=== PATIENT | female | born 1995 ===

== ENCOUNTER 2018-11-03 17:17 | Observation (INO) | payer BC | END 2018-11-03 19:29 | disposition home or self-care (01) | LOC: MW.OBCHECK 17:17 → MW.OB 17:19 → MW.OBCHECK 17:55 | PROVIDERS: ADMIT Obstetrics & Gynecology; ATTEND Obstetrics & Gynecology | DX: O47.1 False labor at or after 37 completed weeks of gestation (principal); Z3A.40 40 weeks gestation of pregnancy; Z88.1 Allergy status to other antibiotic agents | CPT/HCPCS: 59025; 81003; G0378 ==

== ENCOUNTER 2018-11-03 23:28 | Inpatient (IN) | payer BC ==
[2018-11-04] MEDS ORDERED: Sodium Chloride 0.9% 10 ML SDV IV PRN ×2 (02:41→08:07)
[2018-11-04] MEDS: Butorphanol 1 MG/ML SDV IVPUSH PRN ×3 (03:03→08:31)
[2018-11-04] MEDS: Lactated Ringers 1,000 ML IV SCH ×4 (03:07→18:29)
[2018-11-04] MEDS ORDERED: Carboprost Tromethamine 250 MCG/1 ML Amp IM PRN (08:07)
[2018-11-04] MEDS ORDERED: Sodium Chloride 0.9% 2.5 ML Syringe FLUSH PRN (08:07)
[2018-11-04] MEDS ORDERED: Methylergonovine 0.2 MG/1 ML Amp IM PRN (08:07)
[2018-11-04] MEDS ORDERED: Nalbuphine 10 MG/1 ML Vial IVPUSH PRN ×2 (08:07→22:11)
[2018-11-04] MEDS ORDERED: Misoprostol 200 MCG Tab PO PRN (08:07)
[2018-11-04] MEDS ORDERED: Sodium Chloride 0.9% 10 ML Syringe FLUSH PRN (08:07)
[2018-11-04] MEDS ORDERED: Water For Irrigation,Sterile 1,000 ML Container IRR PRN (08:07)
[2018-11-04] MEDS ORDERED: Butorphanol 1 MG/ML SDV IVPUSH PRN (08:07)
[2018-11-04] MEDS ORDERED: Tranexamic Acid 1,000 MG in Sodium Chloride 0.9% 100 ML IV PRN (08:07)
[2018-11-04] MEDS ORDERED: Lidocaine 1% 50 ML MDV INJECT PRN (08:07)
[2018-11-04] MEDS ORDERED: Lactated Ringers 1,000 ML IV SCH ×2 (08:15→22:30)
[2018-11-04] MEDS ORDERED: Oxytocin/0.9 % Sodium Chloride 30 UNIT/500 ML BAG IV SCH ×2 (08:15→13:45)
--- NOTE | 2018-11-04 08:53 | PCM.PREANE ---
Preanesthetic Assessment - Anesthesia/Transfusion/Family Hx Anesthesia History: Prior Anesthesia Without Reaction Family History of Anesthesia Reaction: No Transfusion History: No Prior Transfusion(s) - Review of Systems General: No Symptoms Pulmonary: No Symptoms Cardiovascular: No Symptoms Gastrointestinal: No Symptoms Neurological: No Symptoms Other: Reports: None - Physical Assessment Height: 5 ft 2 in Weight: 72.575 kg ASA Class: 2 Mental Status: Alert & Oriented x3 Airway Class: Mallampati = 2 Dentition: Reports: Normal Dentition Thyro-Mental Finger Breadths: 3 Mouth Opening Finger Breadths: 3 ROM/Head Extension: Full Lungs: Clear to Auscultation, Normal Respiratory Effort Cardiovascular: Regular Rate, Regular Rhythm - Lab Values: Laboratory Last Values WBC 16.44 K/uL (4.0-11.0) H 11/04/18 08:24 RBC 4.58 M/uL (4.30-5.90) 11/04/18 08:24 Hgb 13.8 g/dL (12.0-16.0) 11/04/18 08:24 Hct 40.3 % (36.0-46.0) 11/04/18 08:24 MCV 88.0 fL (80.0-98.0) 11/04/18 08:24 MCH 30.1 pg (27.0-32.0) 11/04/18 08:24 MCHC 34.2 g/dL (31.0-37.0) 11/04/18 08:24 RDW Std Deviation 42.1 fl (28.0-62.0) 11/04/18 08:24 RDW Coeff of [place] 13 % (11.0-15.0) 11/04/18 08:24 Plt Count 168 K/uL (150-400) 11/04/18 08:24 MPV 11.10 fL (7.40-12.00) 11/04/18 08:24 Nucleated RBC % 0.0 /100WBC 11/04/18 08:24 Nucleated RBCs # 0 K/uL 11/04/18 08:24 - Allergies Allergies/Adverse Reactions: Allergies Allergy/AdvReac Type Severity Reaction Status Date / Time cefaclor [From [facility]] Allergy Anaphylactic Verified 11/04/18 07:48 Shock - Acknowledgements Anesthesia Type Planned: Epidural Pt an Appropriate Candidate for the Planned Anesthesia: Yes Alternatives and Risks of Anesthesia Discussed w Pt/Guardian: Yes Pt/Guardian Understands and Agrees with Anesthesia Plan: Yes PreAnesthesia Questionnaire HEENT History: Reports: None Cardiovascular History: Reports: None Respiratory History: Reports: Asthma Gastrointestinal History: Reports: GERD Genitourinary History: Reports: None : 1 Para: 0 LMP (Approximate): Musculoskeletal History: Reports: None Neurological History: Reports: None Psychiatric History: Reports: None Endocrine/Metabolic History: Reports: None Hematologic History: Reports: None Immunologic History: Reports: None Oncologic (Cancer) History: Reports: None Dermatologic History: Reports: None - Infectious Disease History Infectious Disease History: Reports: None - Past Surgical History HEENT Surgical History: Reports: Oral Surgery ([place] teeth) - HOME MEDS Home Medications: Home Meds Acetaminophen [Tylenol] 325 mg PO PRN 10/27/18 [History] PNV95/Ferrous Fumarate/FA [ Tablet] 1 each PO DAILY 10/27/18 [History] - CURRENT (IN HOUSE) MEDS Current Meds: Current Medications Butorphanol Tartrate (Stadol) 1 mg IVPUSH Q1H PRN PRN Reason: Pain Last Admin: 11/04/18 04:36 Dose: 1 mg Lactated Ringer's (Ringers, Lactated) 1,000 mls @ 125 mls/hr IV ASDIRECTED RANJIT Last Admin: 11/04/18 03:07 Dose: 125 mls/hr Sodium Chloride (Normal Saline) 10 ml IV ASDIRECTED PRN PRN Reason: IV Use
[2018-11-04] MEDS ORDERED: Oxytocin/Lactated Ringers 30 UNIT/500 ML BAG IV SCH (13:30)
[2018-11-04] MEDS ORDERED: Bupivacaine 0.5% 10 ML SDV ONE (20:31)
[2018-11-04] MEDS ORDERED: Oxytocin 10 Units/1 ML SDV ONE (20:46)
[2018-11-04] MEDS ORDERED: Clindamycin Phosphate in D5W 900 MG in Premix Bag 1 BAG IV ONE ×2 (20:50)
[2018-11-04] MEDS ORDERED: ePHEDrine 50 MG/ML SDV ONE (20:53)
[2018-11-04] MEDS ORDERED: Ondansetron 4 MG/2 ML SDV ONE (20:59)
[2018-11-04] MEDS ORDERED: fentaNYL 100 MCG/2 ML SDV ONE ×2 (21:02→21:31)
[2018-11-04] MEDS ORDERED: Morphine PF 10 MG/10 ML SDV ONE (21:17)
[2018-11-04] MEDS ORDERED: Propofol 200 MG/20 ML SDV ONE (21:34)
[2018-11-04] MEDS ORDERED: Octyl 2-Cyanoacrylate 1 Tube ONE (21:49)
[2018-11-04] MEDS ORDERED: diphenhydrAMINE 50 MG/ML SDV IVPUSH PRN ×2 (22:11→22:18)
[2018-11-04] MEDS ORDERED: Naloxone 0.4 MG/ML Syringe IVPUSH PRN (22:11)
--- NOTE | 2018-11-04 22:17 | PCM.OPNOTE ---
- General Post-Op/Procedure Note Date of Surgery/Procedure: 11/04/18 Operative Procedure(s): Primary lower segment transverse Findings: Live Male delivered at 2108, 8/9 weight 3180g Pre Op Diagnosis: 23 yo @ 40w4d. Category 2 heart tracing remote from delivery Post-Op Diagnosis: same Anesthesia Technique: Spinal Primary Surgeon: Gaby Haile Anesthesia Provider: Kirit Barraza Pathology: none Fluid Replacement, Intraop: 1,200 Output, Urine Amount: 125 EBL in mLs: 1,000 Complications: None Condition: Good Free Text/Narrative:: Intake & Output 11/04/18 11/04/18 11/04/18 06:59 14:59 22:59 Output Total 120 Balance -120
[2018-11-04] MEDS ORDERED: Bisacodyl 10 MG Supp RECTAL PRN (22:18)
[2018-11-04] MEDS ORDERED: Measles, Mumps & Rubella Vaccine 0.5 ML SDV SUBCUT ONE (22:18)
[2018-11-04] MEDS ORDERED: Ondansetron 4 MG/2 ML SDV IVPUSH PRN (22:18)
[2018-11-04] MEDS ORDERED: Lanolin 100% Cream 7 GM Tube TOP PRN (22:18)
[2018-11-04] MEDS ORDERED: Acetaminophen/oxyCODONE 325-5 MG Tab PO PRN ×2 (22:18)
--- NOTE | 2018-11-04 22:23 | PCM.POSTAN ---
POST ANESTHESIA ASSESSMENT - MENTAL STATUS Mental Status: Alert, Oriented - VITAL SIGNS Pulse Rate: 125 SaO2: 100 (RA) Resp Rate: 18 - RESPIRATORY Respiratory Status: Respiratory Rate WNL, Airway Patent, O2 Saturation Stable - CARDIOVASCULAR CV Status: Pulse Rate WNL, Blood Pressure Stable - GASTROINTESTINAL GI Status: No Symptoms - PAIN Pain Score: 1 - POST OP HYDRATION Hydration Status: Adequate & Stable
[2018-11-05] MEDS: Ketorolac 30 MG/ML SDV IVPUSH SCH ×4 (00:07→17:40)
--- NOTE | 2018-11-05 08:47 | PCM.PNPP ---
- General Info Date of Service: 11/05/18 Functional Status: Reports: Pain Controlled, Tolerating Diet - Review of Systems General: Denies: Fever, Weakness Pulmonary: Denies: Shortness of Breath Cardiovascular: Denies: Chest Pain, Palpitations Gastrointestinal: Reports: Flatus. Denies: Abdominal Pain, Nausea, Vomiting Genitourinary: Denies: Flank Pain Musculoskeletal: Reports: No Symptoms Skin: Reports: No Symptoms Neurological: Reports: No Symptoms Psychiatric: Reports: No Symptoms - General Info Date of Service: 11/05/18 - Patient Data Vital Signs - Most Recent: Last Vital Signs Temp 36.4 C 11/05/18 04:00 Pulse 89 11/05/18 07:00 Resp 17 11/05/18 08:00 BP 95/52 L 11/05/18 07:00 Pulse Ox 98 11/05/18 08:00 Weight - Most Recent: 160 kg I&O - Last 24 Hours: Intake & Output 11/04/18 11/05/18 11/05/18 22:59 06:59 14:59 Intake Total 2200 Output Total 370 480 Balance 1830 -480 Lab Results - Last 24 Hours: Laboratory Results - last 24 hr 11/04/18 11/05/18 Range/Units 08:24 05:44 Hgb 9.7 L (12.0-16.0) g/dL Hct 29.2 L (36.0-46.0) % Blood Type O POSITIVE Antibody Screen NEGATIVE Med Orders - Current: Current Medications Bisacodyl (Dulcolax) 10 mg RECTAL ONETIME PRN PRN Reason: Constipation Butorphanol Tartrate (Stadol) 1 mg IVPUSH Q1H PRN PRN Reason: Pain Carboprost Tromethamine (Hemabate Ds) 250 mcg IM ASDIRECTED PRN PRN Reason: Post Hemorrhage Diphenhydramine HCl (Benadryl) 25 mg IVPUSH Q6H PRN PRN Reason: Itching or Nausea Docusate Sodium (Colace) 100 mg PO BID RANJIT Emollient Ointment (Lansinoh Hpa) 0 gm TOP ASDIRECTED PRN PRN Reason: Sore Nipples Tranexamic Acid 1,000 mg/ (Sodium Chloride) 110 mls @ 660 mls/hr IV ONETIME PRN PRN Reason: Bleeding Oxytocin/Sodium Chloride (Oxytocin 30 Unit/500 Ml-Ns) 30 unit in 500 mls @ 500 mls/hr IV TITRATE RANJIT Oxytocin/Sodium Chloride (Oxytocin 30 Unit/500 Ml-Ns) 30 unit in 500 mls @ 2 mls/hr IV TITRATE [facility]; Protocol Last Titration: 11/05/18 02:24 Dose: Infused Lactated Ringer's (Ringers, Lactated) 1,000 mls @ 125 mls/hr IV ASDIRECTED RANJIT Ibuprofen (Motrin) 800 mg PO Q8H PRN PRN Reason: mild pain or fever Ketorolac Tromethamine (Toradol) 30 mg IVPUSH Q6H RANJIT Stop: 11/06/18 00:01 Lidocaine HCl (Xylocaine 1%) 50 ml INJECT ONETIME PRN PRN Reason: Laceration repair Methylergonovine Maleate (Methergine) 0.2 mg IM ASDIRECTED PRN PRN Reason: Post Hemorrhage Misoprostol (Cytotec) 200 mcg PO ONETIME PRN PRN Reason: Post Hemorrhage Nalbuphine HCl (Nubain) 10 mg IVPUSH Q1H PRN PRN Reason: Pain (severe 7-10) Nalbuphine HCl (Nubain) 5 mg IVPUSH Q3H PRN PRN Reason: Pruritis Stop: 11/05/18 22:11 Naloxone HCl (Narcan) 0.1 mg IVPUSH ONETIME PRN PRN Reason: Respiratory Depression Stop: 11/05/18 22:11 Ondansetron HCl (Zofran) 4 mg IVPUSH Q4H PRN PRN Reason: Nausea/Vomiting Oxycodone/Acetaminophen (Percocet 325-5 Mg) 1 tab PO Q4H PRN PRN Reason: Pain (moderate 4-6) Oxycodone/Acetaminophen (Percocet 325-5 Mg) 2 tab PO Q4H PRN PRN Reason: Pain (moderate 4-6) Sodium Chloride (Normal Saline) 10 ml IV ASDIRECTED PRN PRN Reason: IV Use Sodium Chloride (Saline Flush) 10 ml FLUSH ASDIRECTED PRN PRN Reason: Keep Vein Open Sodium Chloride (Saline Flush) 2.5 ml FLUSH ASDIRECTED PRN PRN Reason: Keep Vein Open Sodium Chloride (Normal Saline) 10 ml IV ASDIRECTED PRN PRN Reason: IV Use Discontinued Medications Bupivacaine HCl (Sensorcaine-Mpf 0.5%) Confirm Administered Dose 20 ml .ROUTE .STK-MED ONE Stop: 11/04/18 20:32 Butorphanol Tartrate (Stadol) 1 mg IVPUSH Q1H PRN PRN Reason: Pain Last Admin: 11/04/18 08:31 Dose: 1 mg Diphenhydramine HCl (Benadryl) 25 mg IVPUSH Q4H PRN PRN Reason: Itching Stop: 11/05/18 22:11 Ephedrine Sulfate (Ephedrine Sulfate) Confirm Administered Dose 50 mg .ROUTE .STK-MED ONE Stop: 11/04/18 20:54 Fentanyl (Sublimaze) Confirm Administered Dose 100 mcg .ROUTE .STK-MED ONE Stop: 11/04/18 21:03 Fentanyl (Sublimaze) Confirm Administered Dose 100 mcg .ROUTE .STK-MED ONE Stop: 11/04/18 21:32 Lactated Ringer's (Ringers, Lactated) 1,000 mls @ 125 mls/hr IV ASDIRECTED [facility] Last Admin: 11/04/18 18:29 Dose: 125 mls/hr Fentanyl/Bupivacaine HCl (Nxsnmjpn-Welov-Oo 2 Mcg/Ml-0.125%) Confirm Administered Dose 100 mls @ as directed .ROUTE .STK-MED ONE Stop: 11/04/18 09:00 Lactated Ringer's (Ringers, Lactated) 1,000 mls @ 150 mls/hr IV ASDIRECTED [facility] Fentanyl/Bupivacaine HCl (Nyaptpnx-Gwtsg-Lt 2 Mcg/Ml-0.125%) Confirm Administered Dose 100 mls @ as directed .ROUTE .STK-MED ONE Stop: 11/04/18 18:05 Clindamycin Phosphate 900 mg/ (Premix) 50 mls @ 100 mls/hr IV ONETIME ONE Stop: 11/04/18 21:19 Gentamicin Sulfate 100 mg/ (Sodium Chloride) 102.5 mls @ 195.238 mls/hr IV ONETIME ONE Stop: 11/04/18 21:20 Ketorolac Tromethamine (Toradol) 30 mg IVPUSH Q6H [facility] Stop: 11/05/18 22:31 Last Admin: 11/05/18 06:10 Dose: 30 mg Measles/Mumps/Rubella Vaccine Live (M-M-R Ii Vaccine) 0.5 ml SUBCUT .ONCE ONE Stop: 11/04/18 22:19 Morphine Sulfate (Duramorph Pf) Confirm Administered Dose 10 mg .ROUTE .STK-MED ONE Stop: 11/04/18 21:18 Octyl Cyanoacrylate (Dermabond Advance) Confirm Administered Dose 1 applic .ROUTE .STK-MED ONE Stop: 11/04/18 21:50 Ondansetron HCl (Zofran) Confirm Administered Dose 4 mg .ROUTE .STK-MED ONE Stop: 11/04/18 21:00 Oxytocin (Pitocin) Confirm Administered Dose 30 unit .ROUTE .STK-MED ONE Stop: 11/04/18 20:47 Propofol (Diprivan 20 Ml) Confirm Administered Dose 200 mg .ROUTE .STK-MED ONE Stop: 11/04/18 21:35 Sterile Water (Sterile Water For Irrigation) 1,000 ml IRR ASDIRECTED PRN PRN Reason: delivery - Interaction Support Person: Mother, Significant Other - Recovery Exam Fundal Tone: Firm Fundal Level: 1 Fingerbreadths Above Umbilicus Fundal Placement: Midline Lochia Amount: Scant Lochia Color: Rubra/Red Perineum Description: Intact, Minimal Bruising/Swelling Urinary Elimination: Indwelling Catheter - Exam General: Alert, Oriented Lungs: Normal Respiratory Effort Cardiovascular: Regular Rate, Regular Rhythm GI/Abdominal Exam: Normal Bowel Sounds, Soft Extremities: Pedal Edema (trace). No: Amrita's Sign Skin: Warm, Dry, Intact Wound/Incisions: Dressing Dry and Intact Neurological: No New Focal Deficit Psy/Mental Status: Alert, Normal Affect - Problem List & Annotations (1) intolerance to labor, delivered, current hospitalization SNOMED Code(s): 216758862, 120910079 Code(s): O77.9 - LABOR AND DELIVERY COMPLICATED BY STRESS, UNSPECIFIED Status: Acute Current Visit: Yes - Problem List Review Problem List Initiated/Reviewed/Updated: Yes - Assessment Assessment:: POD 1 status post c section - Plan Plan:: Continue postoperative cares. Ambulate halls. May remove torres later this morning. Continue to work with .
[2018-11-05] MEDS: Docusate Sodium 100 MG Cap PO SCH ×2 (09:05→23:06)
[2018-11-06] MEDS: Ketorolac 30 MG/ML SDV IVPUSH SCH (00:04)
--- NOTE | 2018-11-06 02:18 | OR ---
SURGEON: LEFTY RAMOS DATE OF PROCEDURE: 11/04/2018 PREOPERATIVE DIAGNOSES: A 23-year-old G1, P0, at 40 weeks 4 days with category II heart tracing, remote from delivery. POSTOPERATIVE DIAGNOSIS: A 23-year-old G1, P0, at 40 weeks 4 days with category II heart tracing, remote from delivery. PROCEDURE: Primary lower transverse segment section. ESTIMATED BLOOD LOSS: 1000. INTRAVENOUS FLUID: 1200. URINE OUTPUT: 125. ANESTHESIA: Epidural. NOTES AND FINDINGS: A live male delivered at 2108 hours, Apgars 8 and 9, weight is 3180 g. BRIEF HISTORY ABOUT THE PATIENT: She was a 23-year-old G1, P0, at 40 weeks 4 days, who came in complaining of contractions. When she came, she was about 1 to 2 cm dilated. She slowly made progress at about 3 cm to 4 cm. She was then admitted. When she was admitted, membranes were ruptured at 4 cm, and she made very slow progress to 5 cm. IUPC was placed after the rupture, and Pitocin was started. When Pitocin was about 12 milliunits, the patient had recurrent late decels 50s to 60s; as a result, Pitocin was held. Tracing became category I. She did not make any cervical change. Pitocin was started at 6 and had the same repetitive deceleration again. Pitocin was shut off then. Again, Pitocin was restarted at 1. When it got to about 3 milliunits, she began to have decels. As a result of this and lack of cervical change, the patient was counseled for a primary section. She was explained the risks, benefits, and alternatives, and she decided to proceed. DESCRIPTION OF PROCEDURE: The patient was taken to the operating room, where spinal anesthesia and epidural anesthesia were topped off. She was placed in the dorsal supine position with a leftward tilt. A Pfannenstiel skin incision was made with a scalpel and carried down to the fascia with the Bovie. The fascia was incised and extended laterally. The fascia was then from the rectus muscle superiorly and inferiorly. The rectus muscle was in the midline down to the level of the pubic symphysis. The peritoneum was entered in bluntly. Then, the peritoneum was extended upwards and outwards. An Antonio O retractor was placed in for retraction to expose the lower uterine segment. was observed. A bladder flap was created. Then, a lower uterine incision was made, and the incision was extended upwards and downwards manually. The fetus was in the OP position and was delivered without difficulty. The cord was clamped and cut. The was handed over to the awaiting technical implementation lead. The edges of the hysterotomy were held with the Allis , and a 0 Vicryl stitch was made interlocking, and a second stitch of 0 Monocryl was also done imbricating. The Antonio retractor was removed. The gutters were cleaned. The incision was inspected and was noted to be hemostatic. Then, the peritoneum was approximated with 2-0 Vicryl. The rectus muscle was also approximated with 2-0 Vicryl. The fascia was approximated with 0 Vicryl, and the skin was approximated with 3-0 Monocryl on a Roman needle. All instrument and pad counts were correct x2. The patient tolerated the procedure well and was sent to the Labor and Delivery recovery room in stable condition. ADRIANA RAZA /[id number]
[2018-11-06] MEDS ORDERED: Ibuprofen 800 MG Tab PO PRN (04:30)
[2018-11-06] MEDS: Docusate Sodium 100 MG Cap PO SCH (08:18)
--- NOTE | 2018-11-06 09:22 | PCM.PNPP ---
- General Info Date of Service: 11/06/18 Functional Status: Reports: Pain Controlled, Tolerating Diet, Ambulating, Urinating - Review of Systems General: Reports: Fatigue. Denies: Fever, Weakness Pulmonary: Denies: Shortness of Breath Cardiovascular: Denies: Chest Pain, Palpitations, Lightheadedness Gastrointestinal: Reports: Flatus. Denies: Abdominal Pain (pain is well controlled with pain meds), Nausea, Vomiting Genitourinary: Denies: Flank Pain Musculoskeletal: Reports: No Symptoms Skin: Reports: No Symptoms Neurological: Reports: No Symptoms Psychiatric: Reports: No Symptoms - General Info Date of Service: 11/06/18 - Patient Data Vital Signs - Most Recent: Last Vital Signs Temp 36.3 C 11/06/18 07:22 Pulse 76 11/06/18 07:22 Resp 14 11/06/18 07:22 BP 110/67 11/06/18 07:22 Pulse Ox 96 11/06/18 07:22 Weight - Most Recent: 160 kg Med Orders - Current: Current Medications Bisacodyl (Dulcolax) 10 mg RECTAL ONETIME PRN PRN Reason: Constipation Butorphanol Tartrate (Stadol) 1 mg IVPUSH Q1H PRN PRN Reason: Pain Carboprost Tromethamine (Hemabate Ds) 250 mcg IM ASDIRECTED PRN PRN Reason: Post Hemorrhage Diphenhydramine HCl (Benadryl) 25 mg IVPUSH Q6H PRN PRN Reason: Itching or Nausea Docusate Sodium (Colace) 100 mg PO BID [facility] Last Admin: 11/06/18 08:18 Dose: 100 mg Emollient Ointment (Lansinoh Hpa) 0 gm TOP ASDIRECTED PRN PRN Reason: Sore Nipples Tranexamic Acid 1,000 mg/ (Sodium Chloride) 110 mls @ 660 mls/hr IV ONETIME PRN PRN Reason: Bleeding Oxytocin/Sodium Chloride (Oxytocin 30 Unit/500 Ml-Ns) 30 unit in 500 mls @ 500 mls/hr IV TITRATE RANJIT Oxytocin/Sodium Chloride (Oxytocin 30 Unit/500 Ml-Ns) 30 unit in 500 mls @ 2 mls/hr IV TITRATE RANJIT; Protocol Last Titration: 11/05/18 02:24 Dose: Infused Lactated Ringer's (Ringers, Lactated) 1,000 mls @ 125 mls/hr IV ASDIRECTED RANJIT Ibuprofen (Motrin) 800 mg PO Q8H PRN PRN Reason: mild pain or fever Last Admin: 11/06/18 06:07 Dose: 800 mg Lidocaine HCl (Xylocaine 1%) 50 ml INJECT ONETIME PRN PRN Reason: Laceration repair Methylergonovine Maleate (Methergine) 0.2 mg IM ASDIRECTED PRN PRN Reason: Post Hemorrhage Misoprostol (Cytotec) 200 mcg PO ONETIME PRN PRN Reason: Post Hemorrhage Nalbuphine HCl (Nubain) 10 mg IVPUSH Q1H PRN PRN Reason: Pain (severe 7-10) Ondansetron HCl (Zofran) 4 mg IVPUSH Q4H PRN PRN Reason: Nausea/Vomiting Oxycodone/Acetaminophen (Percocet 325-5 Mg) 1 tab PO Q4H PRN PRN Reason: Pain (moderate 4-6) Last Admin: 11/06/18 08:17 Dose: 1 tab Oxycodone/Acetaminophen (Percocet 325-5 Mg) 2 tab PO Q4H PRN PRN Reason: Pain (moderate 4-6) Sodium Chloride (Normal Saline) 10 ml IV ASDIRECTED PRN PRN Reason: IV Use Sodium Chloride (Saline Flush) 10 ml FLUSH ASDIRECTED PRN PRN Reason: Keep Vein Open Sodium Chloride (Saline Flush) 2.5 ml FLUSH ASDIRECTED PRN PRN Reason: Keep Vein Open Sodium Chloride (Normal Saline) 10 ml IV ASDIRECTED PRN PRN Reason: IV Use Discontinued Medications Bupivacaine HCl (Sensorcaine-Mpf 0.5%) Confirm Administered Dose 20 ml .ROUTE .STK-MED ONE Stop: 11/04/18 20:32 Butorphanol Tartrate (Stadol) 1 mg IVPUSH Q1H PRN PRN Reason: Pain Last Admin: 11/04/18 08:31 Dose: 1 mg Diphenhydramine HCl (Benadryl) 25 mg IVPUSH Q4H PRN PRN Reason: Itching Stop: 11/05/18 22:11 Ephedrine Sulfate (Ephedrine Sulfate) Confirm Administered Dose 50 mg .ROUTE .STK-MED ONE Stop: 11/04/18 20:54 Fentanyl (Sublimaze) Confirm Administered Dose 100 mcg .ROUTE .STK-MED ONE Stop: 11/04/18 21:03 Fentanyl (Sublimaze) Confirm Administered Dose 100 mcg .ROUTE .STK-MED ONE Stop: 11/04/18 21:32 Lactated Ringer's (Ringers, Lactated) 1,000 mls @ 125 mls/hr IV ASDIRECTED [facility] Last Admin: 11/04/18 18:29 Dose: 125 mls/hr Fentanyl/Bupivacaine HCl (Froiocfj-Luqxa-Ki 2 Mcg/Ml-0.125%) Confirm Administered Dose 100 mls @ as directed .ROUTE .STK-MED ONE Stop: 11/04/18 09:00 Lactated Ringer's (Ringers, Lactated) 1,000 mls @ 150 mls/hr IV ASDIRECTED [facility] Fentanyl/Bupivacaine HCl (Nermkxpb-Zvcjb-Wn 2 Mcg/Ml-0.125%) Confirm Administered Dose 100 mls @ as directed .ROUTE .[facility] ONE Stop: 11/04/18 18:05 Clindamycin Phosphate 900 mg/ (Premix) 50 mls @ 100 mls/hr IV ONETIME ONE Stop: 11/04/18 21:19 Gentamicin Sulfate 100 mg/ (Sodium Chloride) 102.5 mls @ 195.238 mls/hr IV ONETIME ONE Stop: 11/04/18 21:20 Ketorolac Tromethamine (Toradol) 30 mg IVPUSH Q6H [facility] Stop: 11/05/18 22:31 Last Admin: 11/05/18 06:10 Dose: 30 mg Ketorolac Tromethamine (Toradol) 30 mg IVPUSH Q6H [facility] Stop: 11/06/18 00:01 Last Admin: 11/06/18 00:04 Dose: 30 mg Measles/Mumps/Rubella Vaccine Live (M-M-R Ii Vaccine) 0.5 ml SUBCUT .ONCE ONE Stop: 11/04/18 22:19 Morphine Sulfate (Duramorph Pf) Confirm Administered Dose 10 mg .ROUTE .STK-MED ONE Stop: 11/04/18 21:18 Nalbuphine HCl (Nubain) 5 mg IVPUSH Q3H PRN PRN Reason: Pruritis Stop: 11/05/18 22:11 Naloxone HCl (Narcan) 0.1 mg IVPUSH ONETIME PRN PRN Reason: Respiratory Depression Stop: 11/05/18 22:11 Octyl Cyanoacrylate (Dermabond Advance) Confirm Administered Dose 1 applic .ROUTE .STK-MED ONE Stop: 11/04/18 21:50 Ondansetron HCl (Zofran) Confirm Administered Dose 4 mg .ROUTE .STK-MED ONE Stop: 11/04/18 21:00 Oxytocin (Pitocin) Confirm Administered Dose 30 unit .ROUTE .STK-MED ONE Stop: 11/04/18 20:47 Propofol (Diprivan 20 Ml) Confirm Administered Dose 200 mg .ROUTE .STK-MED ONE Stop: 11/04/18 21:35 Sterile Water (Sterile Water For Irrigation) 1,000 ml IRR ASDIRECTED PRN PRN Reason: delivery - Interaction Support Person: Mother, Significant Other - Recovery Exam Fundal Tone: Firm Fundal Level: 1 Fingerbreadths Below Umbilicus Fundal Placement: Midline Lochia Amount: None Lochia Color: Rubra/Red Perineum Description: Intact, Minimal Bruising/Swelling Bladder Status: Voiding Urinary Elimination: Indwelling Catheter - Exam General: Alert, Oriented Lungs: Normal Respiratory Effort Cardiovascular: Regular Rate, Regular Rhythm GI/Abdominal Exam: Normal Bowel Sounds, Soft Extremities: Pedal Edema (trace). No: Amrita's Sign Skin: Warm, Dry, Intact Wound/Incisions: Healing Well, No Drainage. No: Erythema Neurological: No New Focal Deficit Psy/Mental Status: Alert, Normal Affect, Normal Mood - Problem List & Annotations (1) intolerance to labor, delivered, current hospitalization SNOMED Code(s): 809133723, 888284019 Code(s): O77.9 - LABOR AND DELIVERY COMPLICATED BY STRESS, UNSPECIFIED Status: Acute Current Visit: Yes - Problem List Review Problem List Initiated/Reviewed/Updated: Yes - My Orders Last 24 Hours: My Active Orders 11/06/18 09:20 Ready for Discharge [RC] PER UNIT ROUTINE - Assessment Assessment:: POD 2 status post c section - Plan Plan:: Doing well overall. going well. Ambulating halls and urinating. Would like to go home later today. Discharge to home. Discharge instructions reviewed. Infection and bleeding warnings reviewed. Follow up at [facility] 2 and 6 weeks
== END 2018-11-06 12:40 | disposition home or self-care (01) | DRG 540 ==
LOC: MW.OBCHECK 23:28 → MW.OB 23:41 → MW.OBCHECK 11-04 08:07 → OBSVTOIN 11-04 21:08 → MW.OB 11-05 02:28
PROVIDERS: ADMIT Obstetrics & Gynecology; ATTEND Obstetrics & Gynecology
PROC: 10D00Z1 Extraction of Products of Conception, Low, Open Approach (ICD-10-PCS; principal; 2018-11-04)
PROC: 10H07YZ Insertion of Other Device into Products of Conception, Via Natural or Artificial Opening (ICD-10-PCS; 2018-11-04)
PROC: 3E033VJ Introduction of Other Hormone into Peripheral Vein, Percutaneous Approach (ICD-10-PCS; 2018-11-04)
DX: O48.0 Post-term pregnancy (principal); O76 Abnormality in fetal heart rate and rhythm complicating labor and delivery; Z3A.40 40 weeks gestation of pregnancy; Z37.0 Single live birth; Z88.1 Allergy status to other antibiotic agents; Z23 Encounter for immunization
CPT/HCPCS: 01967; 01968; 36415; 51702; 59025; 85014; 85018; 85027; 86850; 86900; 86901; 90707; A4217; A9270-GY; J0595; J1885; J2270; J2405; J2590; J2704; J3010; J3490; J7120

== ENCOUNTER 2020-09-04 15:29 | Inpatient (IN) | payer OTHER ==
[2020-09-04] MEDS: Lactated Ringers 1,000 ML IV SCH ×2 (15:44→16:46)
[2020-09-04] MEDS ORDERED: Sodium Chloride 0.9% 10 ML Syringe FLUSH PRN (16:03)
[2020-09-04] MEDS ORDERED: Citric Acid/Sodium Citrate Solution 30 ML Cup PO ONE (16:03)
[2020-09-04] MEDS ORDERED: Clindamycin Phosphate in D5W 600 MG in Premix Bag 1 BAG IV ONE ×2 (16:03)
[2020-09-04] MEDS ORDERED: Sodium Chloride 0.9% 10 ML SDV IV PRN (16:03)
[2020-09-04] MEDS ORDERED: Sodium Chloride 0.9% 2.5 ML Syringe FLUSH PRN (16:03)
[2020-09-04] MEDS ORDERED: Oxytocin/0.9 % Sodium Chloride 30 UNIT/500 ML BAG IV SCH (16:15)
[2020-09-04] MEDS ORDERED: Gentamicin 360 MG in Sodium Chloride 0.9% 100 ML IV ONE (16:45)
[2020-09-04] MEDS ORDERED: Phenylephrine 1% 10 MG/ML SDV ONE (17:02)
[2020-09-04] MEDS ORDERED: Morphine PF 10 MG/10 ML SDV ONE (17:02)
[2020-09-04] MEDS ORDERED: Ondansetron 4 MG/2 ML SDV ONE (17:02)
[2020-09-04] MEDS ORDERED: Oxytocin 10 Units/1 ML SDV IM PRN (18:52)
[2020-09-04] MEDS ORDERED: Bisacodyl 10 MG Supp RECTAL PRN (18:52)
[2020-09-04] MEDS ORDERED: Misoprostol 200 MCG Tab RECTAL PRN (18:52)
[2020-09-04] MEDS ORDERED: Acetaminophen/oxyCODONE 325-5 MG Tab PO PRN (18:52)
[2020-09-04] MEDS ORDERED: Ondansetron 4 MG/2 ML SDV IVPUSH PRN (18:52)
[2020-09-04] MEDS ORDERED: Tranexamic Acid 1,000 MG in Sodium Chloride 0.9% 100 ML IV PRN (18:52)
[2020-09-04] MEDS ORDERED: Methylergonovine 0.2 MG/1 ML Amp IM PRN (18:52)
[2020-09-04] MEDS ORDERED: diphenhydrAMINE 50 MG/ML SDV IVPUSH PRN (18:52)
[2020-09-04] MEDS ORDERED: Lactated Ringers 1,000 ML IV SCH (19:00)
--- NOTE | 2020-09-04 19:21 | PCM.POSTAN ---
POST ANESTHESIA ASSESSMENT - MENTAL STATUS Mental Status: Alert, Oriented - RESPIRATORY Respiratory Status: Respiratory Rate WNL, Airway Patent, O2 Saturation Stable - CARDIOVASCULAR CV Status: Pulse Rate WNL, Blood Pressure Stable - GASTROINTESTINAL GI Status: No Symptoms - PAIN Pain Score: 0 - POST OP HYDRATION Hydration Status: Adequate & Stable
[2020-09-04] MEDS: Lanolin 100% Cream 7 GM Tube TOP PRN (19:28)
[2020-09-04] MEDS: Docusate Sodium 100 MG Cap PO SCH (20:16)
[2020-09-04] MEDS: Ketorolac 30 MG/ML SDV IVPUSH SCH (20:17)
--- NOTE | 2020-09-05 00:42 | OR ---
SURGEON: Ino Matthews MD DATE OF PROCEDURE: 09/04/2020 INDICATION FOR PROCEDURE: This is a 25-year-old G2, P 1-0-0-1 at 38 weeks and 6 days, presenting with spontaneous rupture of membranes and early labor. The patient had a repeat planned due to history of one previous , and the baby has been in breech presentation. She has been having intermittent contractions since yesterday. She was 2cm dilated and confirmed to be ruptured with positive AmniSure. The baby was confirmed to be complete breech presentation with bedside sono. The patient's was complicated by conception while having a ParaGard IUD, which was removed without complications early in . She is GBS negative. The patient was admitted for repeat section. PREOPERATIVE DIAGNOSES: 1. Durand intrauterine at 38 weeks and 6 days. 2. Spontaneous rupture of membranes 3. Complete breech presentation. 4. Prior section x1. POSTOPERATIVE DIAGNOSES: 1. Durand intrauterine at 38 weeks and 6 days. 2. Spontaneous rupture of membranes 3. Complete breech presentation. 4. Prior section x1. PROCEDURE PERFORMED: Repeat low transverse section. ANESTHESIOLOGIST: Dr. Geoff Martinez. ANESTHESIA: Spinal. FINDINGS: Viable female infant. scores of 8 and 9. weight 3260 g. Normal- appearing uterus, bilateral fallopian tubes and ovaries. ESTIMATED BLOOD LOSS: 700 mL. URINE OUTPUT: 200 mL. INTRAVENOUS FLUIDS: 1080 mL. DESCRIPTION OF PROCEDURE: The procedure was discussed with the patient. The risks include bleeding, infection, DVTs, and injury to surrounding organs including bladder, bowel, ureter. The patient expressed understanding, and consent was signed. The patient was brought to the operating room. She received gentamicin and clindamycin IV for infection prophylaxis due to allergy to cephalosporins. Spinal anesthesia was performed. A Rodriguez catheter and SCDs were placed. The abdomen was prepped with chlorhexidine in a sterile fashion, and then draped and tested for anesthesia. The spinal was found to be adequate. A Pfannenstiel incision was made with a scalpel, and an elliptical incision made to remove the subcutaneous scar from the previous . The subcutaneous layer was then dissected down to fascia. Multiple sites of bleeding were noted and cauterized. The fascia was cleared of subcutaneous tissue. The fascia was incised in the midline and extended laterally with curved Sanabria scissors. Rossana clamps were placed on the superior fascial edge, and the rectus muscles were from the fascia by blunt dissection and using Sanabria scissors. There was moderate adhesions due to the previous surgery, and careful attention was made during the dissection process. The rectus muscle was in the inferior edge in the same fashion. The rectus muscles were in the midline using a hemostat. The peritoneum was seen and opening made bluntly. The peritoneum was then bluntly stretched. A large Antonio O retractor was placed in the peritoneal cavity. The bladder was noted to be adhered to the lower uterine segment. A bladder flap was created by dissection of the vesicouterine peritoneum with Metzenbaum scissors and pushing the bladder away from the lower uterine segment. The uterus was then incised using scalpel and extended bluntly. Amniotic sac with clear fluid was noted and ruptured. The infant was noted to be in complete breech presentation. The 's hips were grasped, turn sacrum anterior, and elevated through the hysterotomy followed by the delivery of the buttocks and both legs. The right shoulder was then rotated anteriorly and the right arm delivered by sweeping toward the body. Then the left shoulder and arm was delivered in a similar fashion. The head was delivered by elevating the body and flexing the chin. The nose and mouth were suctioned. The baby was pink, crying, and moving all extremities. The umbilical cord was clamped and cut after 60 seconds and no longer pulsating. The baby was then handed over to nursery staff. The cord gases were obtained. The placenta was delivered with gentle traction on the umbilical cord. The uterus was cleared of any remaining membranes with clean lap. Allis clamps were used to grasp the angles and lower edges of the incision. The uterine incision was closed with in running locking fashion using 0 Monocryl. A second layer was placed in a horizontal imbricating fashion. A small area of bleeding was noted on the left side of the hysterotomy, and a [id number] was placed with good hemostasis. The uterus was firm. The paracolic gutters were cleared of any clots. The incision was irrigated. The incision was checked again for hemostasis. The peritoneum was grasped by hemostats and closed with 2-0 Vicryl in a running fashion. The rectus muscles were carefully examined and noted to be hemostatic. Two mattress stitches were placed to reapproximate the rectus muscle at the midline. The fascia was closed using a 0 Vicryl in a running fashion. The subcutaneous tissue was irrigated and bleeding areas was cauterized. The subcutaneous layer was brought together with 2-0 plain suture in a running fashion. The skin was closed subcuticularly with 3-0 Monocryl on a Roman needle. Telfa and ABD dressing were placed over the incision. The patient was stable during the procedure and transferred to recovery room. WINDY RAZA /[id number] [email or web address]
[2020-09-05] MEDS: Ketorolac 30 MG/ML SDV IVPUSH SCH ×4 (02:16→19:48)
[2020-09-05] MEDS: Docusate Sodium 100 MG Cap PO SCH ×2 (08:14→21:06)
--- NOTE | 2020-09-05 09:48 | PCM.PNPP ---
- General Info Date of Service: 09/05/20 Functional Status: Reports: Pain Controlled, Tolerating Diet, Ambulating, Urinating, Other (Passing flatus) - Review of Systems General: Reports: No Symptoms HEENT: Reports: No Symptoms Pulmonary: Reports: No Symptoms Cardiovascular: Reports: No Symptoms Gastrointestinal: Reports: No Symptoms Genitourinary: Reports: No Symptoms Musculoskeletal: Reports: No Symptoms Skin: Reports: No Symptoms Neurological: Reports: No Symptoms Psychiatric: Reports: No Symptoms - Patient Data Vital Signs - Most Recent: Last Vital Signs Temp 36.3 C 09/05/20 08:00 Pulse 81 09/05/20 08:00 Resp 17 09/05/20 08:00 BP 99/55 L 09/05/20 08:00 Pulse Ox 97 09/05/20 08:00 Weight - Most Recent: 158 lb 12.8 oz I&O - Last 24 Hours: Intake & Output 09/04/20 09/05/20 09/05/20 22:59 06:59 14:59 Intake Total 1025 Output Total 200 1300 Balance 825 -1300 Lab Results - Last 24 Hours: Laboratory Results - last 24 hr 09/04/20 09/04/20 09/04/20 Range/Units 15:44 17:05 17:44 WBC 12.26 H (4.0-11.0) K/uL RBC 4.55 (4.30-5.90) M/uL Hgb 13.6 (12.0-16.0) g/dL Hct 40.1 (36.0-46.0) % MCV 88.1 (80.0-98.0) fL MCH 29.9 (27.0-32.0) pg MCHC 33.9 (31.0-37.0) g/dL RDW Std Deviation 41.3 (28.0-62.0) fl RDW Coeff of [place] 13 (11.0-15.0) % Plt Count 184 (150-400) K/uL MPV 11.60 (7.40-12.00) fL Nucleated RBC % 0.0 /100WBC Nucleated RBCs # 0 K/uL Cord ABG pH 7.205 (7.18-7.38) Cord ABG Base Excess -5 (-10--2) Cord VBG pH 7.324 (7.25-7.45) Cord VBG Base Excess -6 (-10--2) Blood Type O POSITIVE Antibody Screen NEGATIVE 09/05/20 Range/Units 05:25 WBC (4.0-11.0) K/uL RBC (4.30-5.90) M/uL Hgb 11.5 L (12.0-16.0) g/dL Hct 34.5 L (36.0-46.0) % MCV (80.0-98.0) fL MCH (27.0-32.0) pg MCHC (31.0-37.0) g/dL RDW Std Deviation (28.0-62.0) fl RDW Coeff of [place] (11.0-15.0) % Plt Count (150-400) K/uL MPV (7.40-12.00) fL Nucleated RBC % /100WBC Nucleated RBCs # K/uL Cord ABG pH (7.18-7.38) Cord ABG Base Excess (-10--2) Cord VBG pH (7.25-7.45) Cord VBG Base Excess (-10--2) Blood Type Antibody Screen Med Orders - Current: Current Medications Bisacodyl (Bisacodyl 10 Mg Supp) 10 mg RECTAL ONETIME PRN PRN Reason: Constipation Diphenhydramine HCl (Diphenhydramine 50 Mg/Ml Sdv) 25 mg IVPUSH Q6H PRN PRN Reason: Itching or Nausea Last Admin: 09/04/20 19:21 Dose: 25 mg Documented by: Docusate Sodium (Docusate Sodium 100 Mg Cap) 100 mg PO BID [facility] Last Admin: 09/05/20 08:14 Dose: 100 mg Documented by: Emollient Ointment (Lanolin 100% Cream 7 Gm Tube) 0 gm TOP ASDIRECTED PRN PRN Reason: Sore Nipples Last Admin: 09/04/20 19:28 Dose: 7 g Documented by: Oxytocin/Sodium Chloride (Oxytocin 30 Unit/500 Ml-Ns) 30 unit in 500 mls @ 250 mls/hr IV TITRATE [facility] Lactated Ringer's (Ringers, Lactated) 1,000 mls @ 500 mls/hr IV BOLUS [facility] Last Admin: 09/04/20 16:46 Dose: 500 mls/hr Documented by: Lactated Ringer's (Ringers, Lactated) 1,000 mls @ 125 mls/hr IV ASDIRECTED [facility] Last Admin: 09/04/20 20:59 Dose: 125 mls/hr Documented by: Tranexamic Acid 1,000 mg/ (Sodium Chloride) 110 mls @ 660 mls/hr IV ONETIME PRN PRN Reason: Bleeding Ibuprofen (Ibuprofen 800 Mg Tab) 800 mg PO Q8H PRN PRN Reason: mild pain or fever Ketorolac Tromethamine (Ketorolac 30 Mg/Ml Sdv) 30 mg IVPUSH Q6H [facility] Stop: 09/05/20 20:01 Last Admin: 09/05/20 08:14 Dose: 30 mg Documented by: Methylergonovine Maleate (Methylergonovine 0.2 Mg/1 Ml Amp) 0.2 mg IM ONETIME PRN PRN Reason: Excessive Vaginal Bleeding Misoprostol (Misoprostol 200 Mcg Tab) 1,000 mcg RECTAL ONETIME PRN PRN Reason: excessive bleeding Ondansetron HCl (Ondansetron 4 Mg/2 Ml Sdv) 4 mg IVPUSH Q4H PRN PRN Reason: Nausea/Vomiting Oxycodone/Acetaminophen (Acetaminophen/Oxycodone 325-5 Mg Tab) 1 tab PO Q4H PRN PRN Reason: Pain (moderate 4-6) Oxycodone/Acetaminophen (Acetaminophen/Oxycodone 325-5 Mg Tab) 2 tab PO Q4H PRN PRN Reason: Pain (moderate 4-6) Oxytocin (Oxytocin 10 Units/1 Ml Sdv) 10 unit IM ASDIRECTED PRN PRN Reason: Excessive Vaginal Bleeding Sodium Chloride (Sodium Chloride 0.9% 10 Ml Syringe) 10 ml FLUSH ASDIRECTED PRN PRN Reason: Keep Vein Open Sodium Chloride (Sodium Chloride 0.9% 2.5 Ml Syringe) 2.5 ml FLUSH ASDIRECTED PRN PRN Reason: Keep Vein Open Sodium Chloride (Sodium Chloride 0.9% 10 Ml Sdv) 10 ml IV ASDIRECTED PRN PRN Reason: IV Use Discontinued Medications Citric Acid/Sodium Citrate (Citric Acid/Sodium Citrate Solution 30 Ml Cup) 30 ml PO ONETIME ONE Stop: 09/04/20 16:04 Last Admin: 09/04/20 17:00 Dose: 30 ml Documented by: Clindamycin Phosphate 600 mg/ (Premix) 50 mls @ 100 mls/hr IV ONETIME ONE Stop: 09/04/20 16:32 Last Admin: 09/04/20 16:36 Dose: 100 mls/hr Documented by: Gentamicin Sulfate 360 mg/ (Sodium Chloride) 109 mls @ 218 mls/hr IV ONETIME ONE Stop: 09/04/20 17:14 Last Admin: 09/04/20 17:04 Dose: 218 mls/hr Documented by: Morphine Sulfate (Morphine Pf 10 Mg/10 Ml Sdv) Confirm Administered Dose 10 mg .ROUTE .STK-MED ONE Stop: 09/04/20 17:03 Ondansetron HCl (Ondansetron 4 Mg/2 Ml Sdv) Confirm Administered Dose 4 mg .ROUTE .STK-MED ONE Stop: 09/04/20 17:03 Phenylephrine HCl (Phenylephrine 1% 10 Mg/Ml Sdv) Confirm Administered Dose 10 mg .ROUTE .STK-MED ONE Stop: 09/04/20 17:03 - Infant Interaction Disposition, : [place] at Bedside Infant Interaction: Holding Infant Feeding: Breastfed Infant; Nursed Well Support Person: Significant Other - Recovery Exam Fundal Tone: Firm Fundal Level: 1 Fingerbreadths Below Umbilicus Fundal Placement: Midline Lochia Amount: Scant Lochia Color: Rubra/Red Perineum Description: Intact, Minimal Bruising/Swelling Episiotomy/Laceration: None Urinary Elimination: Voided - Exam General: Alert, Oriented, Cooperative, No Acute Distress HEENT: Pupils Equal, Pupils Reactive Neck: Supple, Trachea Midline, No JVD Lungs: Normal Respiratory Effort GI/Abdominal Exam: Soft, Non-Tender, No Distention Extremities: Normal Inspection, Normal Range of Motion, Non-Tender, No Pedal Edema Skin: Warm, Dry, Intact Wound/Incisions: Dressing Dry and Intact Neurological: No New Focal Deficit Psy/Mental Status: Alert, Normal Affect, Normal Mood - Problem List Review Problem List Initiated/Reviewed/Updated: Yes - My Orders Last 24 Hours: My Active Orders 09/04/20 Dinner Regular Diet [DIET] 09/04/20 16:03 Patient Status [ADT] Routine Notify Provider Vital Signs [RC] PRN Up ad Divina [RC] ASDIRECTED Verify Patient Consent Obtain [RC] ASDIRECTED Vital Signs [RC] Q1H Sodium Chloride 0.9% [Normal Saline] 10 ml IV ASDIRECTED PRN Sodium Chloride 0.9% [Saline Flush] 10 ml FLUSH ASDIRECTED PRN Sodium Chloride 0.9% [Saline Flush] 2.5 ml FLUSH ASDIRECTED PRN Peripheral IV Insertion Adult [OM.PC] Routine Schedule Procedure [COMM] Per Unit Routine Resuscitation Status Routine 09/04/20 16:15 Lactated Ringers [Ringers, Lactated] 1,000 ml IV BOLUS Oxytocin/0.9 % Sodium Chloride [Oxytocin 30 Unit/500 ML-NS] 30 unit in 500 ml IV TITRATE 09/04/20 17:05 RPR (SYPHILIS SERO) W/ RFLX [REF] Routine 09/04/20 18:52 Ambulate [RC] PER UNIT ROUTINE Communication Order [RC] PER UNIT ROUTINE Communication Order [RC] PER UNIT ROUTINE Communication Order [RC] Per Unit Routine Intake and Output [RC] Q4H May Shower [RC] ASDIRECTED Notify Provider Intake and Out [RC] ASDIRECTED Notify Provider Vital Signs [RC] ASDIRECTED RT Incentive Spirometry [RC] Q2HWA Vital Signs [RC] PER UNIT ROUTINE Acetaminophen/oxyCODONE [Percocet 325-5 MG] 1 tab PO Q4H PRN Acetaminophen/oxyCODONE [Percocet 325-5 MG] 2 tab PO Q4H PRN Lanolin [Lansinoh HPA] See Dose Instructions TOP ASDIRECTED PRN Methylergonovine [Methergine] 0.2 mg IM ONETIME PRN Ondansetron [Zofran] 4 mg IVPUSH Q4H PRN Oxytocin [Pitocin] 10 unit IM ASDIRECTED PRN Tranexamic Acid [Cyklokapron] 1,000 mg Sodium Chloride 0.9% [Normal Saline] 100 ml IV ONETIME bisacodyL [Dulcolax] 10 mg RECTAL ONETIME PRN diphenhydrAMINE [Benadryl] 25 mg IVPUSH Q6H PRN miSOPROStoL [Cytotec] 1,000 mcg RECTAL ONETIME PRN Assess Lochia [WOMSER] Per Unit Routine Assess Uterine Involution [WOMSER] Per Unit Routine Breast Pump [WOMSER] Per Unit Routine Peripheral IV Discontinue [OM.PC] Routine Sequential Compression Device [OM.PC] Per Unit Routine 09/04/20 18:53 Antiembolic Devices [RC] PER UNIT ROUTINE Cooling Warming Measures [RC] ASDIRECTED Abdominal Binder [OM.PC] Per Unit Routine Heat Therapy [OM.PC] Per Unit Routine Ice Therapy [OM.PC] Per Unit Routine 09/04/20 19:00 Lactated Ringers [Ringers, Lactated] 1,000 ml IV ASDIRECTED 09/04/20 20:00 Ketorolac [Toradol] 30 mg IVPUSH Q6H 09/04/20 21:00 Docusate Sodium [Colace] 100 mg PO BID 09/06/20 02:00 Ibuprofen [Motrin] 800 mg PO Q8H PRN - Assessment Assessment:: 25yo POD1 s/p repeat LTCS for breech presentation. Stable and recovering well. - Plan Plan:: - vital stable - tolerating PO, ambulating - torres catheter in place, adequate UO - Hgb stable, bleeding light - pain controlled Plan for discharge home tomorrow
--- NOTE | 2020-09-05 10:52 | PCM48HPAN ---
Post Anesthesia Note - EVALUATION WITHIN 48HRS OF ANESTHETIC Vital Signs in Normal Range: Yes Patient Participated in Evaluation: Yes Respiratory Function Stable: Yes Airway Patent: Yes Cardiovascular Function Stable: Yes Hydration Status Stable: Yes Pain Control Satisfactory: Yes Nausea and Vomiting Control Satisfactory: Yes Mental Status Recovered: Yes Vital Signs: Last Vital Signs Temp 36.3 C 09/05/20 08:00 Pulse 89 09/05/20 10:00 Resp 16 09/05/20 10:00 BP 99/55 L 09/05/20 08:00 Pulse Ox 97 09/05/20 10:00
[2020-09-05] MEDS: Acetaminophen/oxyCODONE 325-5 MG Tab PO PRN (23:24)
[2020-09-06] MEDS ORDERED: Ibuprofen 800 MG Tab PO PRN (02:00)
[2020-09-06] MEDS: Acetaminophen/oxyCODONE 325-5 MG Tab PO PRN (04:39)
[2020-09-06] MEDS: Docusate Sodium 100 MG Cap PO SCH (09:01)
[2020-09-06] MEDS: Lanolin 100% Cream 7 GM Tube TOP PRN (09:01)
--- NOTE | 2020-09-06 10:10 | PCM.PNPP ---
- General Info Date of Service: 09/06/20 Functional Status: Reports: Pain Controlled, Tolerating Diet, Ambulating, Urinating - Review of Systems General: Reports: No Symptoms HEENT: Reports: No Symptoms Pulmonary: Reports: No Symptoms Cardiovascular: Reports: No Symptoms Gastrointestinal: Reports: No Symptoms Genitourinary: Reports: No Symptoms Musculoskeletal: Reports: No Symptoms Skin: Reports: No Symptoms Neurological: Reports: No Symptoms Psychiatric: Reports: No Symptoms - Patient Data Vital Signs - Most Recent: Last Vital Signs Temp 36.0 C L 09/06/20 08:50 Pulse 91 09/06/20 08:50 Resp 16 09/06/20 08:50 BP 104/67 09/06/20 08:50 Pulse Ox 95 09/06/20 08:50 Weight - Most Recent: 158 lb 12.8 oz Med Orders - Current: Current Medications Bisacodyl (Bisacodyl 10 Mg Supp) 10 mg RECTAL ONETIME PRN PRN Reason: Constipation Diphenhydramine HCl (Diphenhydramine 50 Mg/Ml Sdv) 25 mg IVPUSH Q6H PRN PRN Reason: Itching or Nausea Last Admin: 09/04/20 19:21 Dose: 25 mg Documented by: Docusate Sodium (Docusate Sodium 100 Mg Cap) 100 mg PO BID [facility] Last Admin: 09/06/20 09:01 Dose: 100 mg Documented by: Emollient Ointment (Lanolin 100% Cream 7 Gm Tube) 0 gm TOP ASDIRECTED PRN PRN Reason: Sore Nipples Last Admin: 09/06/20 09:01 Dose: 7 gm Documented by: Oxytocin/Sodium Chloride (Oxytocin 30 Unit/500 Ml-Ns) 30 unit in 500 mls @ 250 mls/hr IV TITRATE [facility] Lactated Ringer's (Ringers, Lactated) 1,000 mls @ 500 mls/hr IV BOLUS [facility] Last Admin: 09/04/20 16:46 Dose: 500 mls/hr Documented by: Lactated Ringer's (Ringers, Lactated) 1,000 mls @ 125 mls/hr IV ASDIRECTED [facility] Last Admin: 09/04/20 20:59 Dose: 125 mls/hr Documented by: Tranexamic Acid 1,000 mg/ (Sodium Chloride) 110 mls @ 660 mls/hr IV ONETIME PRN PRN Reason: Bleeding Ibuprofen (Ibuprofen 800 Mg Tab) 800 mg PO Q8H PRN PRN Reason: mild pain or fever Last Admin: 09/06/20 04:38 Dose: 800 mg Documented by: Methylergonovine Maleate (Methylergonovine 0.2 Mg/1 Ml Amp) 0.2 mg IM ONETIME PRN PRN Reason: Excessive Vaginal Bleeding Misoprostol (Misoprostol 200 Mcg Tab) 1,000 mcg RECTAL ONETIME PRN PRN Reason: excessive bleeding Ondansetron HCl (Ondansetron 4 Mg/2 Ml Sdv) 4 mg IVPUSH Q4H PRN PRN Reason: Nausea/Vomiting Oxycodone/Acetaminophen (Acetaminophen/Oxycodone 325-5 Mg Tab) 1 tab PO Q4H PRN PRN Reason: Pain (moderate 4-6) Last Admin: 09/06/20 04:39 Dose: 1 tab Documented by: Oxycodone/Acetaminophen (Acetaminophen/Oxycodone 325-5 Mg Tab) 2 tab PO Q4H PRN PRN Reason: Pain (moderate 4-6) Oxytocin (Oxytocin 10 Units/1 Ml Sdv) 10 unit IM ASDIRECTED PRN PRN Reason: Excessive Vaginal Bleeding Sodium Chloride (Sodium Chloride 0.9% 10 Ml Syringe) 10 ml FLUSH ASDIRECTED PRN PRN Reason: Keep Vein Open Sodium Chloride (Sodium Chloride 0.9% 2.5 Ml Syringe) 2.5 ml FLUSH ASDIRECTED PRN PRN Reason: Keep Vein Open Sodium Chloride (Sodium Chloride 0.9% 10 Ml Sdv) 10 ml IV ASDIRECTED PRN PRN Reason: IV Use Discontinued Medications Citric Acid/Sodium Citrate (Citric Acid/Sodium Citrate Solution 30 Ml Cup) 30 ml PO ONETIME ONE Stop: 09/04/20 16:04 Last Admin: 09/04/20 17:00 Dose: 30 ml Documented by: Clindamycin Phosphate 600 mg/ (Premix) 50 mls @ 100 mls/hr IV ONETIME ONE Stop: 09/04/20 16:32 Last Admin: 09/04/20 16:36 Dose: 100 mls/hr Documented by: Gentamicin Sulfate 360 mg/ (Sodium Chloride) 109 mls @ 218 mls/hr IV ONETIME ONE Stop: 09/04/20 17:14 Last Admin: 09/04/20 17:04 Dose: 218 mls/hr Documented by: Ketorolac Tromethamine (Ketorolac 30 Mg/Ml Sdv) 30 mg IVPUSH Q6H [facility] Stop: 09/05/20 20:01 Last Admin: 09/05/20 19:48 Dose: 30 mg Documented by: Morphine Sulfate (Morphine Pf 10 Mg/10 Ml Sdv) Confirm Administered Dose 10 mg .ROUTE .STK-MED ONE Stop: 09/04/20 17:03 Ondansetron HCl (Ondansetron 4 Mg/2 Ml Sdv) Confirm Administered Dose 4 mg .ROUTE .STK-MED ONE Stop: 09/04/20 17:03 Phenylephrine HCl (Phenylephrine 1% 10 Mg/Ml Sdv) Confirm Administered Dose 10 mg .ROUTE .STK-MED ONE Stop: 09/04/20 17:03 - Interaction Disposition, : [place] at Bedside Infant Interaction: Holding Infant Feeding: Breastfed ; Nursed Well Support Person: Significant Other - Recovery Exam Fundal Tone: Firm Fundal Level: 1 Fingerbreadths Below Umbilicus Fundal Placement: Midline Lochia Amount: Scant Lochia Color: Rubra/Red Perineum Description: Intact, Minimal Bruising/Swelling Episiotomy/Laceration: None Bladder Status: Voiding Urinary Elimination: Voided - Exam General: Alert, Oriented, Cooperative, No Acute Distress HEENT: Pupils Equal, Pupils Reactive, EOMI Neck: Supple, Trachea Midline, No JVD Lungs: Normal Respiratory Effort GI/Abdominal Exam: Soft, Non-Tender, No Distention Extremities: Normal Inspection, Normal Range of Motion, Non-Tender, No Pedal Edema Skin: Warm, Dry, Intact Wound/Incisions: Healing Well Neurological: No New Focal Deficit Psy/Mental Status: Alert, Normal Affect, Normal Mood - Problem List Review Problem List Initiated/Reviewed/Updated: Yes - My Orders Last 24 Hours: My Active Orders 09/06/20 02:00 Ibuprofen [Motrin] 800 mg PO Q8H PRN 09/06/20 10:08 Ready for Discharge [RC] PER UNIT ROUTINE - Assessment Assessment:: 25yo POD2 s/p repeat LTCS for breech presentation. Stable and recovering well. - Plan Plan:: - vital stable - tolerating PO, ambulating - torres catheter in place, adequate UO - Hgb stable, bleeding light - pain controlled Plan for discharge home today, reviewed care instructions.
== END 2020-09-06 11:44 | disposition home or self-care (01) | DRG 788 ==
LOC: MW.OBCHECK 15:29 → MW.OB 16:03
PROVIDERS: ADMIT Obstetrics & Gynecology; ATTEND Obstetrics & Gynecology
PROC: 10D00Z1 Extraction of Products of Conception, Low, Open Approach (ICD-10-PCS; principal; 2020-09-04)
DX: O34.211 Maternal care for low transverse scar from previous cesarean delivery (principal); Z37.0 Single live birth; Z3A.38 38 weeks gestation of pregnancy; O32.1XX0 Maternal care for breech presentation, not applicable or unspecified
CPT/HCPCS: 36415; 59025; 82803; 85014; 85018; 85027; 86592; 86850; 86900; 86901; A9270-GY; J1200; J1580; J1885; J2270; J2370; J2405; J3490; J7120